=== PATIENT | male | born 2000 | race Caucasian/White ===

== ENCOUNTER 2024-05-17 19:08 | Emergency (ER) | payer OTHER ==
[~2024-05-17] VITALS: Ht 175.3 cm; Wt 70.4 kg
[2024-05-17 22:13] VITALS: BP 119/69; TEMP 98.2; O2SAT 98
== END 2024-05-17 22:39 | disposition home or self-care (01) ==
LOC: M ED 19:08
DX: S62.306A Unspecified fracture of fifth metacarpal bone, right hand, initial encounter for closed fracture (principal); S60.511A Abrasion of right hand, initial encounter; W22.09XA Striking against other stationary object, initial encounter; Y92.009 Unspecified place in unspecified non-institutional (private) residence as the place of occurrence of the external cause; Y93.89 Activity, other specified; Y99.9 Unspecified external cause status